=== PATIENT | female | born 1990 | race Hispanic/Latino ===

== ENCOUNTER 2018-04-15 23:40 | Emergency (ER) | payer OTHER ==
[2018-04-15 23:55] VITALS: BP 137/86; PULSE 79; RESP 18; TEMP 97.9; O2SAT 100
[2018-04-16 01:49] LABS: BASO % 0.4 % (0.0-2.0); EOS # 0.3 K/uL (0.0-0.7); EOS % 3.8 % (0.0-4.0); HEMOGLOBIN 14.6 g/dL (12.0-16.0); LYMPH # 2.6 K/uL (1.0-4.3); LYMPH % 34.2 % (20.0-40.0); MEAN CELL VOLUME 87.3 fl (81.0-99.0); MEAN CORPUSCULAR HEMOGLOBIN 29.8 pg (27.0-31.0); MEAN CORPUSCULAR HGB CONC 34.2 g/dL (33.0-37.0); MEAN PLATELET VOLUME 7.4 fl (7.2-11.7); MONO # 0.9 K/uL (0.0-0.8); MONO % 11.6 % (0.0-10.0); NEUT # 3.8 K/uL (1.8-7.0); NRBC % 0.1 % (0.0-0.0); RBC 4.89 Mil/uL (3.80-5.20); RED CELL DISTRIBUTION WIDTH 13.5 % (11.5-14.5); SQUAMOUS EPITHIAL 1 /hpf (0-5); URINE BILIRUBIN NEGATIVE (NEGATIVE); URINE BLOOD NEGATIVE (NEGATIVE); URINE CLARITY CLEAR (Clear); URINE COLOR COLORLESS (YELLOW); URINE GLUCOSE (UA) NEG (Normal); URINE LEUKOCYTE ESTERASE NEG Leu/uL (Negative); URINE PROTEIN NEGATIVE (NEGATIVE); URINE UROBILINOGEN 0.2-1.0 mg/dL (0.2-1.0); WHITE BLOOD COUNT 7.7 K/uL (4.8-10.8)
--- NOTE | 2018-04-16 01:51 | ED PDOC ---
Syncope/Near Syncope/Dizziness Time Seen by Provider: 04/16/18 00:00 Chief Complaint (Nursing): Syncope Chief Complaint (Provider): Syncope History Per: Patient History/Exam Limitations: no limitations Onset/Duration Of Symptoms: Days Additional History Per: Family (boyfriend, mother) Additional Complaint(s): 27 year old female with a past medical history of bipolar disorder and thoracic outlet syndrome presents to the ED for an evaluation of syncopal episode. Also reports of left arm pain, numbness, weakness and neck pain. She wanted her family in the room with her. As per boyfriend, at 1900 patient appeared weak and fell asleep and woke up felling anxious so he gave her a paper-bag to breath but she passed out for a few seconds and then woke up crying hysterically and could not speak full sentences. Patient does not recall the incident and states she is feeling stressed. Denies fever, vomiting or abdominal pain. PMD: Provider in [place] Past Medical History Reviewed: Historical Data, Nursing Documentation, Vital Signs Vital Signs: Last Vital Signs Temp 97.9 F 04/15/18 23:54 Pulse 79 04/15/18 23:54 Resp 18 04/15/18 23:54 BP 137/86 04/15/18 23:54 Pulse Ox 100 04/15/18 23:56 - Medical History PMH: Bipolar Disorder Other PMH: thoracic outlet syndrome - Surgical History Surgical History: No Surg Hx - Family History Family History: States: Unknown Family Hx - Social History Current smoker - smoking cessation education provided: No Alcohol: Social Drugs: Denies - Allergies Allergies/Adverse Reactions: Allergies Allergy/AdvReac Type Severity Reaction Status Date / Time Penicillins Allergy RASH Verified 04/15/18 23:59 Review of Systems ROS Statement: Except As Marked, All Systems Reviewed And Found Negative Constitutional: Positive for: Weakness. Negative for: Fever Gastrointestinal: Negative for: Vomiting, Abdominal Pain Musculoskeletal: Positive for: Neck Pain, Arm Pain (left) Neurological: Positive for: Numbness Psych: Positive for: Anxiety Physical Exam - Reviewed Nursing Documentation Reviewed: Yes Vital Signs Reviewed: Yes - Physical Exam Appears: Positive for: Non-toxic, No Acute Distress Head Exam: Positive for: ATRAUMATIC, NORMAL INSPECTION, NORMOCEPHALIC Skin: Positive for: Normal Color, Warm, Dry Eye Exam: Positive for: Normal appearance, EOMI, PERRL ENT: Positive for: Normal ENT Inspection Neck: Positive for: Normal, Painless ROM, Supple. Negative for: Decreased ROM Cardiovascular/Chest: Positive for: Regular Rate, Rhythm. Negative for: Murmur Respiratory: Positive for: Normal Breath Sounds. Negative for: Decreased Breath Sounds, Wheezing, Respiratory Distress Gastrointestinal/Abdominal: Positive for: Normal Exam, Bowel Sounds, Soft. Negative for: Tenderness, Guarding, Rebound Back: Positive for: Normal Inspection Extremity: Positive for: Normal ROM. Negative for: Tenderness, Pedal Edema, Deformity Neurologic/Psych: Positive for: Alert, Oriented (x3), Mood/Affect (anxious), Gait (stable). Negative for: Motor/Sensory Deficits, Aphasia - Laboratory Results Result Diagrams: 04/16/18 01:30 04/16/18 01:30 - ECG O2 Sat by Pulse Oximetry: 100 (RA) Pulse Ox Interpretation: Normal Medical Decision Making Medical Decision Making: Time: 0122 Initial Plan: syncope, likely vasovagal but will rule out cardiacetiology, electrolyte abnormality --Head w/o contrast [CT] --EKG --Alcohol Serum --CMP --Drug Screen, Urine --CBC w/ Differential --Urine C&S --Urinalysis --Reevaluation Labs are negative except urine due to the home medication. EKG: normal sinus rhythm and 61 bpm Time: 0452 CT Head Without Intravenous Contrast FINDINGS: Brain: Unremarkable. No hemorrhage. No significant white matter disease. No edema. Ventricles: Unremarkable. No ventriculomegaly. Bones/joints: Unremarkable. No acute fracture. Soft tissues: Unremarkable. Sinuses: Minimal sinus disease. Mastoid air cells: Unremarkable. No mastoid effusion. Orbits: The globe and lens are intact. IMPRESSION: No evidence of an acute intracranial hemorrhage, midline shift or mass effect is identified. pt aware of lab results, and imaging. pt has been sleeping throughout ER stay. pt stable for dc home. dc home with family. recommended outtp follow up with primary doctor for chronic neck pain. Scribe Attestation: Documented by Chad Patel, acting as a scribe for Damián Oneill MD Provider Scribe Attestation: All medical record entries made by the Scribe were at my direction and personally dictated by me. I have reviewed the chart and agree that the record accurately reflects my personal performance of the history, physical exam, medical decision making, and the department course for this patient. I have also personally directed, reviewed, and agree with the discharge instructions and disposition. Disposition - Clinical Impression Clinical Impression: Vasovagal syncope - Patient ED Disposition Is Patient to be Admitted: No Counseled Patient/Family Regarding: Studies Performed, Diagnosis, Need For Followup - Disposition Disposition: Routine/Home Disposition Time: 05:00 Condition: IMPROVED Additional Instructions: follow up with your primary doctor in [facility] in 1-2 days return to the ED with any worsening or concerning symptoms SUSI BROUSSARD, thank you for letting us take care of you today. Your provider was Damián Oneill MD and you were treated for WEAKNESS, SYNCOPE. The emergency medical care you received today was directed at your acute symptoms. If you were prescribed any medication, please fill it and take as directed. It may take several days for your symptoms to resolve. Return to the Emergency Department if your symptoms worsen, do not improve, or if you have any other problems. Please contact your doctor or call one of the physicians/clinics you have been referred to that are listed on the Patient Visit Information form that is included in your discharge packet. Bring any paperwork you were given at discharge with you along with any medications you are taking to your follow up visit. Our treatment cannot replace ongoing medical care by a primary care provider outside of the emergency department. Thank you for allowing the [facility] team to be part of your care today. If you had an X-Ray or CT scan: A Radiologist will review the ED reading if any change in treatment is needed we will contact you. If you had a blood, urine, or wound culture: It will take several days for the results, if any change in treatment is needed we will contact you. If you had an STI test: It will take 48 hours for the results. Please call after 1 week if you have not heard back. Instructions: Vasovagal Response (DC) Forms: [email or web address] (Spanish)
[2018-04-16 01:59] LABS: ALB/GLOB RATIO 1.3 (1.0-2.1); ALBUMIN 4.9 g/dL (3.5-5.0); ALT/SGPT 26 U/L (9-52); AST/SGOT 30 U/L (14-36); BLOOD UREA NITROGEN 12 mg/dl (7-17); CALCIUM 9.9 mg/dL (8.4-10.2); GFR AFRICAN-AMERICAN > 60; GFR NON-AFRICAN AMERICAN > 60
[2018-04-16 02:10] LABS: BARBITURATES, UR NEGATIVE (NEGATIVE); BENZODIAZEPINES, UR POSITIVE (NEGATIVE); OPIATES, UR NEGATIVE (NEGATIVE); PHENCYCLIDINE, UR NEGATIVE (NEGATIVE)
--- NOTE | 2018-04-16 07:53 | CARD ---
APPROVED REPORT Date of service: 04/16/2018 <Conclusion> Normal sinus rhythm Normal ECG
--- NOTE | 2018-04-16 09:51 | CT ---
Date of service: 04/16/2018 PROCEDURE: CT HEAD WITHOUT CONTRAST. HISTORY: syncope COMPARISON: None available. TECHNIQUE: Axial computed tomography images were obtained through the head/brain without intravenous contrast. Radiation dose: Total exam DLP = 795.84 mGy-cm. This CT exam was performed using one or more of the following dose reduction techniques: Automated exposure control, adjustment of the mA and/or kV according to patient size, and/or use of iterative reconstruction technique. FINDINGS: HEMORRHAGE: No intracranial hemorrhage. BRAIN: Normal low-white matter differentiation and density are appreciated throughout the cerebrum and cerebellum with the brainstem appearing unremarkable as well. There is no mass effect. There is no suspicious extra-axial fluid collection and the midline brain anatomy appears diffusely unremarkable. VENTRICLES: Unremarkable. No hydrocephalus. CALVARIUM: No destructive bony lesion or displaced fracture identified including through the skullbase. PARANASAL SINUSES: Unremarkable as visualized. No significant inflammatory changes. MASTOID AIR CELLS: Unremarkable as visualized. No inflammatory changes. OTHER FINDINGS: None. IMPRESSION: Unremarkable noncontrast CT of the Head. Concordant preliminary report from [facility], 04/16/2018.
== END 2018-04-16 06:07 | disposition home or self-care (01) ==
LOC: H.ER 23:40
DX: R55 Syncope and collapse (principal); R20.2 Paresthesia of skin; F31.9 Bipolar disorder, unspecified; Z88.0 Allergy status to penicillin

== ENCOUNTER 2018-12-04 21:39 | Emergency (ER) | payer OTHER ==
[2018-12-04 22:01] VITALS: BP 137/86; PULSE 57; RESP 16; TEMP 98.2; O2SAT 100
[2018-12-04] MEDS ORDERED: Fluorescein 1 mg Ophthalmic Strip ONE (23:16)
[2018-12-04] MEDS ORDERED: Tetracaine 0.5% Ophth 2 ML BOTTLE ONE (23:20)
--- NOTE | 2018-12-04 23:40 | ED PDOC ---
HPI: Eye Injury/Pain Time Seen by Provider: 12/04/18 23:15 Chief Complaint (Nursing): Eye Problem Chief Complaint (Provider): bilat eye pain History Per: Patient History/Exam Limitations: no limitations Onset/Duration Of Symptoms: Days Current Symptoms Are (Timing): Still Present Injury To Eye?: No Severity: Mild Pain Scale Rating Of: 4 Wears Contact Lens?: Yes Associated Symptoms: FB Sensation, Other (photophobia ) Additional History Per: Patient Additional Complaint(s): 28 y/o female with no significant medical history presents to the ED c/o bilat eye discomfort, "something is in the eye". Pt denies injury but states that she wears contact lenses everyday and last time she felt this discomfort she has bilat corneal abrasions due to debris under contacts. She staes she has not worn contacts since yesterday, she has been wearing eye glasses instead. pt states looking at the light is bothersome. Pt denies eye pressure, increase change in vision, eye drainage (except lacrimation) or crusting, eye redness. Additionally pt denies URI symptoms. Past Medical History Vital Signs: Last Vital Signs Temp 98.2 F 12/04/18 22:00 Pulse 57 L 12/04/18 22:00 Resp 16 12/04/18 22:00 BP 137/86 12/04/18 22:00 Pulse Ox 100 12/04/18 22:00 - Medical History PMH: Bipolar Disorder - Family History Family History: States: Unknown Family Hx - Social History Alcohol: None Drugs: Denies - Home Medications Home Medications: Ambulatory Orders Medication Instructions Recorded Ciprofloxacin HCl [Ciloxan] 0.5 inch OP BID #1 tube 12/04/18 - Allergies Allergies/Adverse Reactions: Allergies Allergy/AdvReac Type Severity Reaction Status Date / Time Penicillins Allergy RASH Verified 04/15/18 23:59 Review of Systems Constitutional: Negative for: Fever Eyes: Positive for: Pain. Negative for: Vision Change, Conjunctivae Inflammation, Eyelid Inflammation, Redness ENT: Negative for: Ear Pain, Ear Discharge, Nose Pain, Nose Discharge, Nose Congestion, Mouth Pain, Mouth Swelling, Throat Pain, Throat Swelling, Other Respiratory: Negative for: Cough Gastrointestinal: Negative for: Nausea Genitourinary Female: Negative for: Dysuria Musculoskeletal: Negative for: Neck Pain, Shoulder Pain, Arm Pain Physical Exam - Reviewed Nursing Documentation Reviewed: Yes Vital Signs Reviewed: Yes - Physical Exam Appears: Positive for: Well Head Exam: Positive for: ATRAUMATIC, NORMAL INSPECTION, NORMOCEPHALIC Skin: Positive for: Normal Color, Warm, DRY Eye Exam: Positive for: Normal appearance, EOMI, PERRL, Other (pos for phot ophobia on exam bilat eyes, discomfort worse to left eye). Negative for: Nystagmus, Periorbital swelling, Periorbital tenderness, Conjunctival injection, Scleral icterus ENT: Positive for: Normal ENT Inspection Neck: Positive for: Normal, Painless ROM Cardiovascular/Chest: Positive for: Regular Rate, Rhythm Respiratory: Positive for: CNT, Normal Breath Sounds Gastrointestinal/Abdominal: Positive for: Normal Exam, Soft Back: Positive for: Normal Inspection Extremity: Positive for: Normal ROM Neurological/Psych: Positive for: Awake, Alert, Normal Tone - ECG O2 Sat by Pulse Oximetry: 100 - Progress ED Course And Treament: fluorescein stain exam Visual Acuity with eye glass Both: 20/50 left 20/50 right 20/70 Fluorescein stain exam poss small abrasion to left eye, no foreign body noted during exam. Both eye irrigated with 10cc of Normal Saline after exam. Pt instructed not to rub eye to avoid eye injury after eye due to decrease sensation. Rx given for Ciloxacin oint and advise to eye well hydrated with eye solution. pt has appointment with opto on December 18. Pt also given information for Dr. Jackson for possible earlier date. Pt given return to ED precautions. Pt verbalizes understanding. Disposition - Clinical Impression Clinical Impression: Corneal abrasion due to contact lens - Patient ED Disposition Is Patient to be Admitted: No Counseled Patient/Family Regarding: Diagnosis, Rx Given - Disposition Referrals: Sahil Jackson MD [Staff Provider] - Disposition: Routine/Home Disposition Time: 23:30 Condition: GOOD Prescriptions: Ciprofloxacin HCl [Ciloxan] 0.5 inch OP BID #1 tube Instructions: Corneal Abrasion (DC) Print Language: TONGAN - POA Present On Arrival: None
== END 2018-12-04 23:30 | disposition home or self-care (01) ==
LOC: H.ER 21:39
DX: H18.829 Corneal disorder due to contact lens, unspecified eye (principal); Z88.0 Allergy status to penicillin; F31.9 Bipolar disorder, unspecified